=== PATIENT | male | born 1995 | race Two or more races ===

== ENCOUNTER 2025-07-05 16:28 | Emergency (ER) | payer MEDICAID, SELFPAY ==
[2025-07-05 16:30] VITALS: BMI 41.8
[2025-07-05 17:17] VITALS: BP 156/95; PULSE 70; RESP 18; TEMP 37.1; O2SAT 97
--- NOTE | 2025-07-05 17:21 | XR_ITS ---
Examination: Knee, left , 3 views Technique: Knee AP, lateral, oblique 3 views Date and time of exam: July 05, 2025 1728 hours INDICATIONS: Patient slipped and fell 2 days ago with injury to knee, knee pain. FINDINGS: Suspicious for lateral patellar subluxation Moderate tricompartment osteoarthritis Large knee effusion Suspicious also for chip fracture off the intercondylar spines, measuring 7 mm IMPRESSION: Recommend CT scan knee follow-up to confirm lateral patellar dislocation and also to confirm small chip fractures off the intercondylar spines of the tibia
--- NOTE | 2025-07-05 17:21 | PD.EDADULT ---
ED General RME/HPI General Chief complaint: Extremity Injury, Lower Stated complaint: LEFT LEG INJURY AFTER FALL Time Seen by Provider: 07/05/25 17:21 Arrival date/time: 07/05/25 16:28 CC: Left knee pain HPI after slip and fall yesterday the patient developed knee pain with a swollen knee. Patient states is tender when she stands on it complains of pain behind the knee and over the top of the knee Tylenol taken earlier this afternoon minimize some of the pain. Patient denies numbness or tingling in the lower extremities. As result of fall patient denies loss of consciousness altered level of consciousness nausea vomiting diarrhea back pain hip pain chest pain or shortness of breath. Related Data Home Medications ?Medication ?Instructions ?Recorded ?Confirmed albuterol sulfate 90 mcg/actuation 8.5 gm IH Q4HR Asthma ##0 01/26/08 10/04/18 aerosol inhaler (ProAir HFA) buspirone 15 mg tablet 15 mg PO BID 08/22/18 10/04/18 loratadine 10 mg capsule 10 mg PO QDAY 08/22/18 10/04/18 Previous Rx's ?Medication ?Instructions ?Recorded cephalexin 500 mg capsule (Keflex) 500 mg PO TID #21 caps 09/29/18 ibuprofen 800 mg tablet 800 mg PO QID PRN inflammation #20 09/29/18 tabs ibuprofen 800 mg tablet 800 mg PO QID PRN pain #20 tabs 10/04/18 tramadol 50 mg tablet 50 mg PO TID #14 tabs 10/04/18 ibuprofen 800 mg tablet 800 mg PO Q8H PRN pain #30 tabs 07/05/25 Allergies Allergy/AdvReac Type Severity Reaction Status Date / Time crab Allergy Severe THROAT Verified 07/05/25 16:29 CLOSES shrimp Allergy Intermediate RASH,DIFF. Verified 07/05/25 16:29 BREATHING carrot Allergy Unknown UNKNOWN Verified 07/05/25 16:29 Review of Systems Review of Systems Narrative Review of Systems: GEN: No fever, no chills, no weight loss EYES: No discharge, no visual changes, no pain HEENT: No ear pain, no congestion, no sore throat PULM: No shortness of breath, no cough, no congestion CV: No chest pain, no dyspnea on exertion, no palpitations GI: No nausea, no vomiting, no diarrhea, no pain, no constipation : No frequency, no urgency, no dysuria MUSC/SKEL: + joint pain, no back pain SKIN: No rash PSYCH: No hallucinations, no depression HEME/LYMPH: No easy bleeding or bruising tendencies NEURO: No weakness, no headache ED Exam Narrative Physical exam: [General: Morbidly obese in mild discomfort but not in any acute distress Head normocephalic HEENT: Within acceptable limits Neck is supple nontender Chest equal chest rise nontender to palpation Respiratory: Clear to auscultation no wheezes crackles or rubs CV: Rate rhythm is regular no murmurs rubs or clicks Abdomen is distended secondary to body habitus soft nontender no masses positive bowel sounds all 4 quadrants Back: No CVA tenderness no spinous process tenderness from cervical spine thoracic and lumbar spine Skin: Intact no petechiae rash induration ulceration or crepitus Extremities: Left lower extremity: Edematous nonerythematous knee, tender to palpation superior lateral and medial portion mild lateral inferior portion. There is tenderness with posterior fossa palpation. Pain with lateral movement. Negative anterior drawer. Moving all other extremities against resistance cap refill less than 2 seconds neurosensory intact Neuro: Awake alert oriented x3 Glascow coma 15 no focal deficits] Course Quality Measures none Orders Category Date Time Status Apply knee immobilizer ONCE Care 07/05/25 20:21 Completed Crutches .NOW Care 07/05/25 20:[address] knee LT wo con Stat Exams 07/05/25 18:50 Completed XR knee LT 3V Stat Exams 07/05/25 17:21 Completed Ketorolac Inj [Toradol Inj] Med 07/05/25 20:21 Discontinued 30 mg IM X1 ONE Vital Signs Vital signs: Vital Signs Temperature 98.8 F 07/05/25 17:17 Pulse Rate 70 07/05/25 17:17 Respiratory Rate 18 07/05/25 17:17 Blood Pressure 156/95 H 07/05/25 17:17 Pulse Oximetry (%) 97 07/05/25 17:17 Oxygen Delivery Method Room Air 07/05/25 17:17 Discharge Plan Plan Patient Disposition: HOME (Self Care) Discharge Disposition comment: Stable Prescriptions/Referrals Prescriptions/Med Rec: New ibuprofen 800 mg tablet 800 mg PO Q8H PRN (Reason: pain) Qty: 30 0RF No Action albuterol sulfate [ProAir HFA] 8.5 GM HFA aerosol inhaler 8.5 gm IH Q4HR Qty: 0 Patient Comments: USE NEEDED buspirone 15 mg Tablet 15 mg PO BID loratadine 10 mg Capsule 10 mg PO QDAY ibuprofen 800 mg tablet 800 mg PO QID PRN (Reason: inflammation) Qty: 20 0RF cephalexin [Keflex] 500 mg capsule 500 mg PO TID Qty: 21 0RF ibuprofen 800 mg tablet 800 mg PO QID PRN (Reason: pain) Qty: 20 0RF tramadol 50 mg tablet 50 mg PO TID Qty: 14 0RF Referrals: Luis Miguel Barr, LINA [Primary Care Provider] - In 1 week Problem List Clinical Impression: Patellar fracture, Knee sprain Patient/Caregiver Discharge Instructions Discharge Activity: activity as tolerated Education Materials: ED Knee Sprain, ED Patella Fracture Additional Instructions: Thank you for the opportunity for serving you today. You are stable for discharged . You are advised to: Follow-up with your PCP in 1 to 2 days and asked for referral to knee joint specialist. Return to ED for worsening of symptoms Increase oral fluids Take medication as prescribed Elevate your legs as needed apply ice for 15 minutes 3 times a day as needed. Wear your knee immobilizer as needed for pain Ambulate with crutches Print Language: Egyptian Stand Alone Forms: Award Info., Patient Portal Info Letter NELSON/NATHAN Supervising Physician NELSON/NATHAN Supervising Physician: MD Torey [facility] Clinical Information Provided by patient Medical Records Reviewed [facility] Chronic Illness/Social Conditions which may negatively complicate care or outcome(s)-explain: None or not applicable EKG EKG not done Lab Interpretation Labs: none Medication Administration(s) Medication Administration History Discontinued Medications Ketorolac Tromethamine (Ketorolac Inj 60 Mg/2 Ml Vial) 30 mg IM X1 ONE Stop: 07/05/25 20:22 Last Admin: 07/05/25 20:33 Dose: 30 mg Documented By: GABRIEL
--- NOTE | 2025-07-05 18:50 | XR_ITS ---
Examination: CT left knee, without contrast. 2-D sagittal reconstructions. 2-D coronal reconstructions. 3-D reconstructions. Date and time of exam:July 05, 2025 1913 hours INDICATIONS: Injury to the knee today with knee pain and swelling CTDI: vol (mGy):10.2 DLP: (mGycm):290 Technique: Multiple 1.25 mm axial sections of the left knee without intravenous contrast have been obtained. 2-D sagittal and coronal reconstructions have been obtained. 3-D reconstructions have been obtained. Low dose protocols were performed. One or more of the following dose reduction techniques were used; automated exposure control, adjustment of the mA and/or KV according to patient size, use of iterative reconstruction technique. Findings: Fracture off the medial aspect of the patella with mildly displaced 12 mm fracture fragment Subluxation of the patella laterally at least 15 mm with likely tear of the medial patellar retinaculum Large effusion Proximal tibia including intercondylar spines are intact there are small old bone densities in the soft tissue and adjacent to the lateral femoral condyle, however axial image 60 is suspicious for avulsion also off the lateral femoral condyle IMPRESSION: Acute 12 mm fracture fragment off the medial aspect of the patella Lateral subluxation of the patella Suspicious for acute chip fracture 6 mm off the anterior lateral femoral condyle MRI knee without contrast follow up would confirm marrow edema bone contusion anterior lateral femoral condyle and tear of the medial patellar retinaculum
--- NOTE | 2025-07-05 20:21 | PD.EDLOWEX ---
Lower Extremity Injury RME/HPI General Chief Complaint: Extremity Injury, Lower Stated Complaint: LEFT LEG INJURY AFTER FALL Time Seen by Provider: 07/05/25 17:21 Arrival date/time: 07/05/25 16:28 RME / HPI RME / HPI Narrative: 30-year-old male patient was brought in by family for evaluation regarding left knee injury. Patient sustained a ground-level fall earlier today and hit the knee on the tile floor. Patient complained of swelling and pain. Patient also complained of mild limitation of range of motion of the knee. Denies any other injury. No medications taken prior to ER visit. Related Data Home Medications ?Medication ?Instructions ?Recorded ?Confirmed albuterol sulfate 90 mcg/actuation 8.5 gm IH Q4HR Asthma ##0 01/26/08 10/04/18 aerosol inhaler (ProAir HFA) buspirone 15 mg tablet 15 mg PO BID 08/22/18 10/04/18 loratadine 10 mg capsule 10 mg PO QDAY 08/22/18 10/04/18 Previous Rx's ?Medication ?Instructions ?Recorded cephalexin 500 mg capsule (Keflex) 500 mg PO TID #21 caps 09/29/18 ibuprofen 800 mg tablet 800 mg PO QID PRN inflammation #20 09/29/18 tabs ibuprofen 800 mg tablet 800 mg PO QID PRN pain #20 tabs 10/04/18 tramadol 50 mg tablet 50 mg PO TID #14 tabs 10/04/18 ibuprofen 800 mg tablet 800 mg PO Q8H PRN pain #30 tabs 07/05/25 Allergies Allergy/AdvReac Type Severity Reaction Status Date / Time crab Allergy Severe THROAT Verified 07/05/25 16:29 CLOSES shrimp Allergy Intermediate RASH,DIFF. Verified 07/05/25 16:29 BREATHING carrot Allergy Unknown UNKNOWN Verified 07/05/25 16:29 Review of Systems Review of Systems Narrative Review of Systems: Review of system reviewed and within normal limits except mentioned in HPI ED Exam Narrative Physical exam: VITAL SIGNS: Reviewed. GENERAL APPEARANCE: Alert and interactive, follows commands, no acute distress, HEAD AND FACE: Non-traumatic. ENT: PERRL, pink conjunctivitis, eyelid no trauma, Mucous membrane moist. NECK: Supple, nontender, no nuchal rigidity. CHEST: No tenderness, no crepitus, no paradoxical movement, no retractions. LUNGS: Clear, well ventilated, symmetric, no rales, no wheezing, no ronchi, no stridor, good breath sounds bilaterally. HEART: Regular rate, regular rhythm, no murmur, no gallops. ABDOMEN: Soft, positive bowel sounds, nondistended, no guarding, nontender, no rebound, no masses, RECTAL: Deferred. GENITAL: Deferred. NEUROLOGICAL: Gross motor function intact sensory function intact, Appropriate for age. MUSCULOSKELETAL: low back nontender, full range of motion. EXTREMITIES: Left knee swelling, tenderness, with limitation range of motion. Distal neurovascular status intact. SKIN: Color pink, dry, no rash, no lacerations, no abrasions, no contusions. LYMPHATICS: Deferred. Course Quality Measures none Orders Category Date Time Status Apply knee immobilizer ONCE Care 07/05/25 20:21 Ordered Crutches .NOW Care 07/05/25 20:[address] knee LT wo con Stat Exams 07/05/25 18:50 Completed XR knee LT 3V Stat Exams 07/05/25 17:21 Completed Ketorolac Inj [Toradol Inj] Med 07/05/25 20:21 Once 30 mg IM X1 ONE Vital Signs Vital signs: Vital Signs Temperature 98.8 F 07/05/25 17:17 Pulse Rate 70 07/05/25 17:17 Respiratory Rate 18 07/05/25 17:17 Blood Pressure 156/95 H 07/05/25 17:17 Pulse Oximetry (%) 97 07/05/25 17:17 Oxygen Delivery Method Room Air 07/05/25 17:17 Extremity Injury, Lower MDM Narrative MDM Narrative:: 30-year-old male patient was brought in by family for evaluation regarding left knee injury. Patient sustained a ground-level fall earlier today and hit the knee on the tile floor. Patient complained of swelling and pain. Patient also complained of mild limitation of range of motion of the knee. Denies any other injury. No medications taken prior to ER visit. CT scan today showed Acute 12 mm fracture fragment off the medial aspect of the patella Lateral subluxation of the patella Suspicious for acute chip fracture 6 mm off the anterior lateral femoral condyle MRI knee without contrast follow up would confirm marrow edema bone contusion anterior lateral femoral condyle and tear of the medial patellar retinaculum Patient was given a copy of his CT scan of the knee. Patient was placed on the knee immobilizer, was given Toradol. Advised the patient to follow-up closely with PCP for outpatient MRI of the knee. And for referral to knee joint specialist. Patient data External records reviewed:: None Clinical information provided by:: patient Social determinants that could affect healthcare access:: none Patient has the following chronic illnesses:: None How is presenting disease/condition affected by chronic disease/condition?: no chronic disease Evaluation data The following diagnostics were reviewed and interpreted by me:: radiology exam(s) Lab and/or radiology exams considered but not ordered:: None Interpretation Summary: See results MDM Medications / Prescriptions Medications or Prescriptions considered but not ordered:: None Medication administrations:: Toradol Consultations Consultation(s) initiated? (list below): No Diagnosis Extremity Injury, Lower Differential Diagnosis: fracture of femur and other (Knee sprain, knee fracture, patellar dislocation,) Most likely diagnosis given after review of the tests above:: Patellar fracture, knee sprain, femoral condyle fracture Admission Indicated Admission indicated?: not indicated Explain why admission is indicated or not indicated:: Stable Admission Request Was there a request for admission?: No Disposition Plan Disposition Plan: Discharge Discharge Attestation Discharge Attestation: The patient and all family members were given an opportunity to ask questions and understood the discharge instructions. Discharge instructions specifically effects, indications for sooner follow up or return to the emergency department, and the expected course of current diagnosis. Patient condition: Stable Discharge Plan Plan Patient Disposition: HOME (Self Care) Discharge Disposition comment: Stable Prescriptions/Referrals Prescriptions/Med Rec: New ibuprofen 800 mg tablet 800 mg PO Q8H PRN (Reason: pain) Qty: 30 0RF No Action albuterol sulfate [ProAir HFA] 8.5 GM HFA aerosol inhaler 8.5 gm IH Q4HR Qty: 0 Patient Comments: USE NEEDED buspirone 15 mg Tablet 15 mg PO BID loratadine 10 mg Capsule 10 mg PO QDAY ibuprofen 800 mg tablet 800 mg PO QID PRN (Reason: inflammation) Qty: 20 0RF cephalexin [Keflex] 500 mg capsule 500 mg PO TID Qty: 21 0RF ibuprofen 800 mg tablet 800 mg PO QID PRN (Reason: pain) Qty: 20 0RF tramadol 50 mg tablet 50 mg PO TID Qty: 14 0RF Referrals: Momo,Christopher R, PA-C [Primary Care Provider] - In 1 week Problem List Clinical Impression: Patellar fracture, Knee sprain Patient/Caregiver Discharge Instructions Discharge Activity: activity as tolerated Education Materials: ED Knee Sprain, ED Patella Fracture Additional Instructions: Thank you for the opportunity for serving you today. You are stable for discharged . You are advised to: Follow-up with your PCP in 1 to 2 days and asked for referral to knee joint specialist. Return to ED for worsening of symptoms Increase oral fluids Take medication as prescribed Elevate your legs as needed apply ice for 15 minutes 3 times a day as needed. Wear your knee immobilizer as needed for pain Ambulate with crutches Print Language: Kinyarwanda Stand Alone Forms: Award Info., Patient Portal Info Letter NELSON/NATHAN Supervising Physician NELSON/NATHAN Supervising Physician: MD Torey
[2025-07-05] MEDS: KETOROLAC INJ 60 MG/2 ML VIAL 30 MG IM (20:33)
== END 2025-07-05 21:07 | disposition home or self-care (01) ==
PROVIDERS: Emergency Provider Emergency Medicine; PCP Physician Assistant
DX: S82.002A Unspecified fracture of left patella, initial encounter for closed fracture (principal); E66.01 Morbid (severe) obesity due to excess calories; Z68.41 Body mass index [BMI] 40.0-44.9, adult; Z91.013 Allergy to seafood; Z91.018 Allergy to other foods; W01.0XXA Fall on same level from slipping, tripping and stumbling without subsequent striking against object, initial encounter
CPT/HCPCS: 73562; 73700; 96372; 99283; J1885